=== PATIENT | female | born 1945 | race Caucasian/White ===

== ENCOUNTER 2018-10-29 08:38 | Emergency (ER) | payer MEDICARE, BC ==
[~2018-10-29 08:38] MED LIST: BACLOFEN10 MG PO; BENZONATATE200 MG PO; CALCIUM600 M3 OR; DILTIAZEM240 MG PO; EC-81 ASPIRIN81 MG OR; GLYBURIDE5 MG PO; JANUVIA100 MG PO; LANTUS SOLOSTAR SC; MELOXICAM7.5 MG PO; METFORMIN1000 MG PO; MUCINEX600 MG PO; PRAVASTATIN20 MG PO; PRINZIDE1 TAB PO; VITAMIN C500 MG OR
[2018-10-29] MEDS ORDERED: TORADOL PO ×2 (11:26→11:44)
[2018-10-29] MEDS ORDERED: DELTASONE20 MG PO ×2 (11:26→11:44)
[2018-10-29 11:34] VITALS: BP 175/74
== END 2018-10-29 11:49 | disposition home or self-care (01) ==
LOC: ED 08:38
DX: M25.551 Pain in right hip (principal); M51.9 Unspecified thoracic, thoracolumbar and lumbosacral intervertebral disc disorder; E11.9 Type 2 diabetes mellitus without complications; I10 Essential (primary) hypertension

== ENCOUNTER 2020-01-06 | Emergency (ER) | payer MEDICARE, BC ==
[~2020-01-06] MED LIST changes: +DELTASONE20 MG PO; +TORADOL PO
[2020-01-06] MEDS ORDERED: VOLTAREN1%GEL TOP (16:54)
[2020-01-06] MEDS ORDERED: MOTRIN400 MG PO (16:54)
[2020-01-06] MEDS ORDERED: COZAAR100 MG PO (17:17)
[2020-01-06] MEDS ORDERED: GABAPENTIN300 M2 PO (17:18)
[2020-01-06] MEDS ORDERED: METOPROLOL SUCC50 MG PO (17:18)
[2020-01-06] MEDS ORDERED: OMEPRAZOLE DR20 MG PO (17:19)
[2020-01-06] MEDS ORDERED: HYDROCHLOROT12.5 M1 PO (17:19)
[2020-01-06] MEDS ORDERED: CO Q 10100 MG PO (17:20)
[2020-01-06] MEDS ORDERED: B COMPLEX-1 PO (17:20)
[2020-01-06] MEDS ORDERED: FISH OIL1000 M2 PO (17:21)
== END 2020-01-06 17:22 | disposition home or self-care (01) ==
DX: M25.551 Pain in right hip (principal); E11.9 Type 2 diabetes mellitus without complications; I10 Essential (primary) hypertension; Z79.4 Long term (current) use of insulin